=== PATIENT | female | born 1935 | race African-American/Black ===

== ENCOUNTER → 2017-04-10 | Outpatient (CLI) | payer MEDICARE, OTHER ==
[2015-10-22 16:38] VITALS: BP 129/65
[~2017-04-10] MED LIST: ALEN70TA3 PO; AMLO10TA2 PO; ASCO10002 PO; ASPI-482 PO; ATOR20TA PO; CALC500T54 PO; CRAN500C6 PO; DONE10TA61 PO; FERR55TA PO; GREEN PO; LORA10CA PO; METH-39 PO; METO-269 PO; MULT-18 PO; NAPR220C4 PO; VALS80TA3 PO; VIT PO; VITA1CAP PO; [UNRECOGNIZED DRUG - OTHER]; [UNRECOGNIZED DRUG - OTHER] PO; [UNRECOGNIZED DRUG - OTHER] PO; juice plus
--- NOTE | 2017-04-10 14:07 | KCIC ---
Bone mineral density study dated 04/10/2017. Indication: Postmenopausal screening. Findings: Lower lumbar spine: BMD (g/cm2): Total L1-L4.......... 1.339. . T-Score: Total L1-L4.................... 2.7. Z-Score: Total L1-L4 ................... 4.7. Left Hip: BMD (g/cm2): Total .......... 0.959. . T-Score: Total .................... 0.1. Z-Score: Total ................... 1.1. World Health Organization criteria for BMD interpretation classify patients as Normal (T-score at or above -1.0), Osteopenic (T-score between -1.0 and -2.5), or Osteoporotic (T-score at or below -2.5). Impression: Bone mineral density values are within the range of normal. Electronically signed by: Henry Groves MD (04/10/2017 2:03 PM) [facility]
--- NOTE | 2017-04-10 16:10 | KCIC ---
Bilateral digital screening mammograms: Reason for examination: Routine screening. Comparison is made to previous studies dated back to 05/02/2013. Interpretation was made with the benefit of CAD. The skin and nipples show no abnormalities. No abnormal axillary lymph nodes are seen. The breast parenchyma shows scattered fibroglandular density. (Breast density: Category B.) There appears to be some focally increased nodularity suggested laterally in the right breast on cc view which may be associated with parenchymal densities seen centrally on the oblique view. Further evaluation with coned compression views and ultrasound is recommended. There are no other new dominant masses, suspicious calcifications or architectural distortions. Some benign calcifications are present. Impression: Focally increased nodular parenchymal density laterally in the right breast on cc view possibly associated with the density seen in the right oblique view centrally. Recommend further evaluation with coned compression views and ultrasound. BI-RADS Category 0: Incomplete. Additional imaging is recommended. "Our facility is accredited by the [employer] Mammography Program." This patient's information has been entered into a reminder system for the patient to be notified with the results of her examination and a target date for the next mammogram. Electronically signed by: Margo Santana MD (04/10/2017 4:07 PM) [facility]
== END | disposition home or self-care (01) ==
LOC: KCIC MAMMO 12:11
PROVIDERS: ATTEND Internal Medicine
DX: Z12.31 Encounter for screening mammogram for malignant neoplasm of breast (principal)
CPT/HCPCS: 77080; G0202; 77067

== ENCOUNTER → 2017-07-23 | Outpatient (CLI) | payer MEDICARE, OTHER | END | disposition home or self-care (01) | LOC: KCIC MAMMO 09:39 | DX: N64.89 Other specified disorders of breast (principal) | CPT/HCPCS: 77065; G0279 ==

== ENCOUNTER 2018-03-13 16:58 | Emergency (ER) | payer MEDICARE, OTHER ==
[~2018-03-13] VITALS: Ht 167.6 cm; Wt 59.0 kg
[~2018-03-13 16:58] MED LIST changes: -AMLO10TA2 PO; +AMLO10TA6 PO
[2018-03-13 17:30] VITALS: BP 163/78
[2018-03-13] MEDS ORDERED: ACETAMINOPHEN 500 MG TABLET PO ONE (17:45)
--- NOTE | 2018-03-13 18:11 | PHYS DOC ---
Past Medical History Past Medical History: High Cholesterol, Hypertension Past Surgical History: Hip Replacement, Hysterectomy, Knee Replacement, Other Additional Past Surgical Histo: R breast cyst removal Alcohol Use: Occasionally Drug Use: None Adult General Chief Complaint Chief Complaint: HIP PAIN HPI HPI Patient is a 83 year old -[place] female who presents to the emergency Department today with complaints of right hip and right knee pain after she reportedly fell out of bed 3 days ago while getting up to her bedside commode. Patient denies any head injury, loss consciousness, nausea, vomiting, diarrhea, confusion, weakness, dizziness, chest pain, or back pain. She states that the pain in her right hip is exacerbated by movement and weightbearing. Currently, she reports the pain is a 2 out of 10 on the pain scale at rest. The pain shoots up to a 10 out of 10 on the pain scale when she stands or moves. She denies any numbness or tingling of the extremity. Review of Systems Review of Systems Constitutional: Denies fever or chills [] Eyes: Denies change in visual acuity, redness, or eye pain [] HENT: Denies nasal congestion or sore throat [] Respiratory: Denies cough or shortness of breath [] Cardiovascular: denies chest pain GI: Denies abdominal pain, nausea, vomiting, or diarrhea [] : Denies dysuria or hematuria [] Musculoskeletal: Denies back pain, Reports right hip and right knee pain after fall 3 days ago Integument: Denies rash or skin lesions; reports bruising to right knee and lateral right hip [] Neurologic: Denies headache, focal weakness or sensory changes [] All other systems were reviewed and found to be within normal limits, except as documented in this note. Current Medications Current Medications Current Medications Medications (Trade) Dose Ordered Sig/Lacey Start Time Stop Time Status Last Admin Dose Admin Acetaminophen (Tylenol) 1,000 mg 1X ONCE 03/13/18 17:45 03/13/18 17:46 DC 03/13/18 18:14 1,000 MG Allergies Allergies Allergies Coded Allergies Type Severity Reaction Last Updated Verified Sulfa (Sulfonamide Antibiotics) Allergy Unknown 08/22/13 Yes lead Allergy Unknown Rash 10/10/13 Yes zinc Allergy Unknown Rash 10/10/13 Yes Physical Exam Physical Exam Constitutional: Well developed, well nourished, no acute distress, non-toxic appearance. [] HENT: Normocephalic, atraumatic, bilateral external ears normal, nose normal. [] Eyes: PERRLA, conjunctiva normal, no discharge. [] Cardiovascular:Heart rate regular rhythm, no murmur [] Lungs & Thorax: Bilateral breath sounds clear to auscultation [] Skin: Warm, dry, no erythema, no rash. [] Extremities: No cyanosis, no clubbing, ROM intact, no edema; R hip tenderness to palpation, R patella bruising with tenderness to palpation. RLE appears shortened and externally rotated at rest [] Neurologic: Alert and oriented X 3, normal motor function, normal sensory function, no focal deficits noted. [] Psychologic: Affect normal, judgement normal, mood normal. [] Current Patient Data Vital Signs Vital Signs Date Time Temp Pulse Resp B/P (MAP) Pulse Ox O2 Delivery O2 Flow Rate FiO2 03/13/18 17:30 99.6 89 18 163/78 (106) 99 Room Air 99.6 EKG EKG [] Radiology/Procedures Radiology/Procedures PROCEDURE: KNEE RIGHT 3V Indication:Fall onto right side TECHNIQUE: 3 views of the right knee COMPARISON:None FINDINGS: Status post total right knee arthroplasty. No periprostatic lucencies to suggest hardware loosening. Osteopenia. No acute fracture or dislocation. No suprapatellar effusion. Vascular calcifications suggesting peripheral arterial disease. IMPRESSION: 1. Status post total knee arthroplasty without acute fractures or dislocation.[] PROCEDURE: HIP RIGHT 2V WITH PELVIS Indication: Fall onto right hip TECHNIQUE: AP pelvis and 2 views of the right hip COMPARISON: Previous study from 01/03/2014 FINDINGS: Severe degenerative changes are seen in the right hip joint with remodeling of the femoral head and acetabular fossa. Moderate bilateral SI joint arthritis. Status post total left hip arthroplasty. No apparent fractures. Vascular calcifications suggesting peripheral arterial disease. Moderate multilevel degenerative disc disease in the lumbar spine. IMPRESSION: Severe right hip joint osteoarthritis. Course & Med Decision Making Course & Med Decision Making Pertinent Labs and Imaging studies reviewed. (See chart for details) R hip contusion and R knee contusions after fall. X-rays of R hip and R knee were negative for any acute fracture or dislocation. Pt was encouraged to continue taking aleve and tylenol as needed for pain. Patient verbalized an understanding of home care, medications, follow-up, and return to ED instructions and was in agreement with the plan of care. [] Dragon Disclaimer Dragon Disclaimer This electronic medical record was generated, in whole or in part, using a voice recognition dictation system. Departure Departure Impression: Primary Impression: Right hip pain Additional Impressions: Contusion of right hip, initial encounter Right knee pain Contusion of right knee, initial encounter Disposition: HOME, SELF-CARE Condition: STABLE Referrals: JEANETTE LOBO MD (PCP) Patient Instructions: Hip Pain Additional Instructions: Continue taking Aleve and Tylenol as needed for pain.. Recommend application of ice, elevation, and rest of affected extremity. Follow-up with your doctor next week if symptoms persist. Return to the ER if your symptoms worsen. Attending Signature Attending Signature I have reviewed the PA/FLIGHT DIRECTOR's note and plan of care. I was available for consultation as needed during the patient's visit in the emergency department. I agree with the clinical impression, plan, and disposition. Problem Qualifiers Additional Impressions: Right knee pain Chronicity: acute Qualified Codes: M25.561 - Pain in right knee JENSEN TONY APRN Mar 13, 2018 18:11 LAUREN ALMANZAR DO Mar 14, 2018 04:32
--- NOTE | 2018-03-13 18:33 | RAD ---
Indication:Fall onto right side TECHNIQUE: 3 views of the right knee COMPARISON:None FINDINGS: Status post total right knee arthroplasty. No periprostatic lucencies to suggest hardware loosening. Osteopenia. No acute fracture or dislocation. No suprapatellar effusion. Vascular calcifications suggesting peripheral arterial disease. IMPRESSION: 1. Status post total knee arthroplasty without acute fractures or dislocation. Electronically signed by: Lamberto Cazares DO (03/13/2018 6:30 PM) [facility]
--- NOTE | 2018-03-13 18:47 | RAD ---
Indication: Fall onto right hip TECHNIQUE: AP pelvis and 2 views of the right hip COMPARISON: Previous study from 01/03/2014 FINDINGS: Severe degenerative changes are seen in the right hip joint with remodeling of the femoral head and acetabular fossa. Moderate bilateral SI joint arthritis. Status post total left hip arthroplasty. No apparent fractures. Vascular calcifications suggesting peripheral arterial disease. Moderate multilevel degenerative disc disease in the lumbar spine. IMPRESSION: Severe right hip joint osteoarthritis. Electronically signed by: Lamberto Cazares DO (03/13/2018 6:44 PM) [facility]
== END 2018-03-13 19:28 | disposition home or self-care (01) ==
LOC: ER 16:58
DX: S80.01XA Contusion of right knee, initial encounter (principal); S70.01XA Contusion of right hip, initial encounter; E78.00 Pure hypercholesterolemia, unspecified; I10 Essential (primary) hypertension; Z96.649 Presence of unspecified artificial hip joint; Z90.710 Acquired absence of both cervix and uterus; Z96.659 Presence of unspecified artificial knee joint; Z88.2 Allergy status to sulfonamides; Z88.8 Allergy status to other drugs, medicaments and biological substances; W06.XXXA Fall from bed, initial encounter; Y93.89 Activity, other specified; Y92.89 Other specified places as the place of occurrence of the external cause; Y99.8 Other external cause status
CPT/HCPCS: 73502; 73562; 99284

== ENCOUNTER 2018-05-13 08:17 | Emergency (ER) | payer MEDICARE ==
[~2018-05-13] VITALS: Ht 165.1 cm; Wt 59.0 kg
--- NOTE | 2018-05-13 08:31 | PHYS DOC ---
Past Medical History Past Medical History: High Cholesterol, Hypertension Past Surgical History: Hip Replacement, Hysterectomy, Knee Replacement, Other Additional Past Surgical Histo: R breast cyst removal Alcohol Use: Occasionally Drug Use: None Adult General Chief Complaint Chief Complaint: MECHANICAL FALL HPI HPI Patient is a 83 year old female who presents from the [facility] she [facility] with some change in mental status. Nursing staff at the [facility] referred the patient to this ER because they perceived that she was having some lethargy or diminished mental status. The patient reportedly has otherwise been at baseline health. No recent illness. On arrival to the ER, the patient is awake and alert and answering most questions appropriately. She does have a known history of some dementia and she is not oriented to place or time but she is able to converse and answer simple questions appropriately. The patient does not have any complaints on arrival to the ER. Review of Systems Review of Systems Constitutional: Denies fever or chills Eyes: Denies change in visual acuity HENT: Denies nasal congestion Respiratory: Denies cough or shortness of breath Cardiovascular: No additional information not addressed in HPI GI: Denies abdominal pain : Denies dysuria Musculoskeletal: Denies back pain Integument: Denies rash Neurologic: Denies headache Endocrine: Denies polyuria All other systems were reviewed and found to be within normal limits, except as documented in this note. Current Medications Current Medications Current Medications Medications (Trade) Dose Ordered Sig/Lacey Start Time Stop Time Status Last Admin Dose Admin Calcium Gluconate (Calcium Gluconate) 1,000 mg 1X ONCE 05/13/18 09:30 05/13/18 09:31 Cancel Dextrose (Dextrose 50%-Water Syringe) 25 gm 1X ONCE 05/13/18 09:30 05/13/18 09:31 Cancel Insulin Human Regular (HumuLIN R VIAL) 10 unit 1X ONCE 05/13/18 09:30 05/13/18 09:31 Cancel Allergies Allergies Allergies Coded Allergies Type Severity Reaction Last Updated Verified Sulfa (Sulfonamide Antibiotics) Allergy Unknown 08/22/13 Yes lead Allergy Unknown Rash 10/10/13 Yes zinc Allergy Unknown Rash 10/10/13 Yes Physical Exam Physical Exam Constitutional: Well developed, well nourished, no acute distress HENT: Normocephalic, atraumatic, bilateral external ears normal, oropharynx moist, no oral exudates Eyes: PERRLA, EOMI, conjunctiva normal Neck: Normal range of motion Cardiovascular:Heart rate regular rhythm, no murmur Lungs & Thorax: Bilateral breath sounds clear to auscultation Abdomen: Bowel sounds normal, soft, nontender Skin: Warm, dry, no erythema Back: No tenderness, no skin breakdown Extremities: No tenderness. no trauma. no skin injury. Some senile purpura present over forearms Neurologic: Alert and oriented to person only, not to place or date, moves all ext's at baseline. no facial asymmetry, protecting airway, conversing Psychologic: Affect normal Current Patient Data Vital Signs Vital Signs Date Time Temp Pulse Resp B/P (MAP) Pulse Ox O2 Delivery O2 Flow Rate FiO2 05/13/18 09:30 68 16 98 05/13/18 08:28 98.0 188/88 (121) Room Air 98.0 Lab Values Laboratory Tests Test 05/13/18 08:50 White Blood Count 4.8 x10^3/uL (4.0-11.0) Red Blood Count 3.63 x10^6/uL (3.50-5.40) Hemoglobin 11.9 g/dL (12.0-15.5) L Hematocrit 33.8 % (36.0-47.0) L Mean Corpuscular Volume 93 fL (79-100) Mean Corpuscular Hemoglobin 33 pg (25-35) Mean Corpuscular Hemoglobin Concent 35 g/dL (31-37) Red Cell Distribution Width 12.6 % (11.5-14.5) Platelet Count 276 x10^3/uL (140-400) Neutrophils (%) (Auto) 70 % (31-73) Lymphocytes (%) (Auto) 18 % (24-48) L Monocytes (%) (Auto) 10 % (0-9) H Eosinophils (%) (Auto) 1 % (0-3) Basophils (%) (Auto) 1 % (0-3) Neutrophils # (Auto) 3.4 x10^3uL (1.8-7.7) Lymphocytes # (Auto) 0.9 x10^3/uL (1.0-4.8) L Monocytes # (Auto) 0.5 x10^3/uL (0.0-1.1) Eosinophils # (Auto) 0.0 x10^3/uL (0.0-0.7) Basophils # (Auto) 0.1 x10^3/uL (0.0-0.2) Sodium Level 139 mmol/L (136-145) Potassium Level 4.2 mmol/L (3.5-5.1) Chloride Level 103 mmol/L (98-107) Carbon Dioxide Level 26 mmol/L (21-32) Anion Gap 10 (6-14) Blood Urea Nitrogen 23 mg/dL (7-20) H Creatinine 0.9 mg/dL (0.6-1.0) Estimated GFR (Cockcroft-Gault) 72.5 Glucose Level 112 mg/dL (70-99) H Calcium Level 9.2 mg/dL (8.5-10.1) Troponin I Quantitative < 0.017 ng/mL (0.000-0.055) Laboratory Tests 05/13/18 08:50 Laboratory Tests 05/13/18 08:50 EKG EKG No STEMI Interpretation Time: 08:55 Radiology/Procedures Radiology/Procedures [] Impressions: Change in mental status Course & Med Decision Making Course & Med Decision Making Pertinent Labs and Imaging studies reviewed. (See chart for details) 08:30: Patient is seen and examined. 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 Patient was fully examined from head to toe. There was no evidence of skin breakdown. No additional acute findings. All of her long bones were palpated. Joints were ranged with in her comfort level and no pain. No hip pain specifically. Palpation of the shoulders thorax arms cervical spine did not elicit any pain. Patient was sent to the ER for some diminished mental status although she is very awake in the ER and free from complaints. We will check EKG and basic labs and observe the patient in the emergency room. 10:00: Patient remains awake, alert, pleasant, answering most questions appropriately. Labs are reviewed and there are no acute findings. EKG is non- acute. Plan is discharge back to the [facility]. Patient continues to deny complaints. Dragon Disclaimer Dragon Disclaimer This electronic medical record was generated, in whole or in part, using a voice recognition dictation system. Departure Departure Disposition: 01 HOME, SELF-CARE Condition: GOOD Referrals: JEANETTE LOBO MD (PCP) IAM LIVINGSTON DO May 13, 2018 08:31
[2018-05-13 09:13] LABS: BASO # 0.1 x10^3/uL (0.0-0.2); BASO % 1 % (0-3); EOS % 1 % (0-3); HEMATOCRIT 33.8 % (36.0-47.0); HEMOGLOBIN 11.9 g/dL (12.0-15.5); LYMPH # 0.9 x10^3/uL (1.0-4.8); LYMPH % 18 % (24-48); MEAN CORPUSCULAR HEMOGLOBIN 33 pg (25-35); MEAN CORPUSCULAR HGB CONC 35 g/dL (31-37); MEAN CORPUSCULAR VOLUME 93 fL (79-100); MONO # 0.5 x10^3/uL (0.0-1.1); MONO % 10 % (0-9); NEUT # 3.4 x10^3uL (1.8-7.7); NEUT % 70 % (31-73); PLATELET COUNT 276 x10^3/uL (140-400); RED BLOOD COUNT 3.63 x10^6/uL (3.50-5.40); RED CELL DISTRIBUTION WIDTH 12.6 % (11.5-14.5); WHITE BLOOD COUNT 4.8 x10^3/uL (4.0-11.0)
[2018-05-13 09:19] LABS: CALCIUM 9.2 mg/dL (8.5-10.1); CREATININE 0.9 mg/dL (0.6-1.0); GFR 72.5; POTASSIUM 4.2 mmol/L (3.5-5.1)
--- NOTE | 2018-05-13 09:24 | EKG ---
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
[2018-05-13 09:30] VITALS: BP 122/76
[2018-05-13] MEDS ORDERED: INSULIN REGULAR 100 UNIT/ML 3ML VIAL. IV ONE (09:30)
[2018-05-13] MEDS ORDERED: DEXTROSE 50% 25 GM / 50ML DISP.SYRIN. IV ONE (09:30)
[2018-05-13] MEDS ORDERED: CALCIUM GLUCONATE 1,000 MG/10 ML VIAL. IVP ONE (09:30)
== END 2018-05-13 10:43 | disposition home or self-care (01) ==
LOC: ER 08:17
DX: R41.82 Altered mental status, unspecified (principal); D69.2 Other nonthrombocytopenic purpura; E78.00 Pure hypercholesterolemia, unspecified; I10 Essential (primary) hypertension; Z90.710 Acquired absence of both cervix and uterus; Z96.659 Presence of unspecified artificial knee joint; Z96.649 Presence of unspecified artificial hip joint; Z88.2 Allergy status to sulfonamides; Z91.048 Other nonmedicinal substance allergy status
CPT/HCPCS: 36415; 80048; 84484; 85025; 93005; 99285-25

== ENCOUNTER 2018-05-19 04:09 | Emergency (ER) | payer MEDICARE ==
[~2018-05-19] VITALS: Ht 167.6 cm; Wt 63.5 kg
--- NOTE | 2018-05-19 04:34 | PHYS DOC ---
Past Medical History Past Medical History: Arthritis, Dementia, Depression, High Cholesterol, Hypertension, UTI Past Surgical History: Hip Replacement, Hysterectomy, Knee Replacement, Other Additional Past Surgical Histo: R breast cyst removal Alcohol Use: None Drug Use: None Adult General Chief Complaint Chief Complaint: MECHANICAL FALL HPI HPI Patient is a 83 year old female who presents with hip and arm pain post fall. Patient fell approximately an hour prior to arrival. Patient denies any loss of consciousness. Patient has not ambulated since this happened. Patient was brought in by EMS from the assisted care facility where she resides. History is limited due to patient's history of dementia. Patient denies any numbness or tingling in her legs or feet that is new. Patient reports having previous left hip replacement. Left hip as well as right and left knees do not hurt. Patient points to her right thumb when asked what else hurts. Patient denies any numbness or tingling in her right thumb. Nothing seems to make the pain better or worse. Patient reports that the pain is mild.[] Review of Systems Review of Systems Constitutional: Denies fever or chills [] Eyes: Denies change in visual acuity, redness, or eye pain [] HENT: Denies nasal congestion or sore throat [] Respiratory: Denies cough or shortness of breath [] Cardiovascular: No chest pain or palpitations[] GI: Denies abdominal pain, nausea, vomiting, bloody stools or diarrhea [] : Denies dysuria or hematuria [] Musculoskeletal: See history of present illness[] Integument: Denies rash or skin lesions [] Neurologic: Denies headache, focal weakness or sensory changes [] Endocrine: Denies polyuria or polydipsia [] All other systems were reviewed and found to be within normal limits, except as documented in this note. Allergies Allergies Allergies Coded Allergies Type Severity Reaction Last Updated Verified Sulfa (Sulfonamide Antibiotics) Allergy Unknown 08/22/13 Yes lead Allergy Unknown Rash 10/10/13 Yes zinc Allergy Unknown Rash 10/10/13 Yes Physical Exam Physical Exam Constitutional: Well developed, well nourished, no acute distress, non-toxic appearance. [] HENT: Normocephalic, atraumatic, bilateral external ears normal, oropharynx moist, no oral exudates, nose normal. [] Eyes: PERRLA, EOMI, conjunctiva normal, no discharge. [] Neck: Normal range of motion, no tenderness, supple, no stridor. [] Cardiovascular:Heart rate regular rhythm, no murmur [] Lungs & Thorax: Bilateral breath sounds clear to auscultation [] Abdomen: Bowel sounds normal, soft, no tenderness, no masses, no pulsatile masses. [] Skin: Warm, dry, no erythema, no rash. Multiple bruises diffusely with a 7 cm hematoma over the mid shaft region of her right humerus. [] Back: No tenderness, no CVA tenderness. [] Extremities: No tenderness, no cyanosis, no clubbing, ROM intact, no edema. No pain with axial load of her right thumb. Patient is neurovascularly intact. Patient is distal neurovascularly intact bilateral lower extremities. No pain with axial load of her right hip. [] Neurologic: Alert and oriented X 1, normal motor function, normal sensory function, no focal deficits noted. [] Psychologic: Affect normal, judgement limited, mood normal. [] Current Patient Data Vital Signs Vital Signs Date Time Temp Pulse Resp B/P (MAP) Pulse Ox O2 Delivery O2 Flow Rate FiO2 05/19/18 04:09 98.7 90 16 183/84 (117) 99 Room Air 98.7 EKG EKG [] Radiology/Procedures Radiology/Procedures X-ray of the right humerus and right hand with attention to the thumb were both negative for acute fracture or dislocation. X-ray of the right hip and pelvis shows severe degenerative changes of the right hip. There is no acute change from March 13, 2018.[] Course & Med Decision Making Course & Med Decision Making Pertinent Labs and Imaging studies reviewed. (See chart for details) [] Dragon Disclaimer Dragon Disclaimer This electronic medical record was generated, in whole or in part, using a voice recognition dictation system. Departure Departure Impression: Primary Impression: Contusion of right hip, initial encounter Additional Impressions: Contusion of right thumb Contusion of right arm Disposition: 01 HOME, SELF-CARE Condition: GOOD Referrals: LAUREN MILLER MD (PCP) Follow-up in 2 days Patient Instructions: Contusion Additional Instructions: Follow-up with your regular doctor in 2 days. Return to the ER if worsening pain or any other concerns. Problem Qualifiers Additional Impressions: Contusion of right thumb Encounter type: initial encounter Damage to nail status: without damage Qualified Codes: S60.011A - Contusion of right thumb without damage to nail, initial encounter Contusion of right arm Encounter type: initial encounter Qualified Codes: S40.021A - Contusion of right upper arm, initial encounter JENNIFER CAR DO May 19, 2018 04:34
--- NOTE | 2018-05-19 05:46 | RAD ---
Right hip radiograph 05/19/2018 4:37 AM INDICATION: Fall onto right hip COMPARISON: Right hip radiograph March 13, 2018 TECHNIQUE: AP view the pelvis and 2 dedicated views the right hip are provided. FINDINGS: There is no acute fracture or dislocation. Advanced joint space narrowing with remodeling of the right femoral head. Flattening of the right femoral head may represent sequela of avascular necrosis. No definite fracture is visualized, however degree of degenerative changes may limit evaluation for subtle fracture. Left total hip arthroplasty is identified. Sacroiliac joints are well-maintained. Advanced degenerative changes are identified at the lumbosacral junction. Superior and inferior pubic rami are intact. Vascular calcific effusions are present. IMPRESSION: No definite acute fracture or dislocation. If there is persistent clinical concern, further evaluation with cross-sectional imaging may be of benefit. 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 Electronically signed by: Niecy Marcial MD (05/19/2018 5:42 AM) [facility]
--- NOTE | 2018-05-19 05:47 | RAD ---
Right humerus 05/19/2018 4:47 AM INDICATION: Fall with right upper arm pain COMPARISON: None available. TECHNIQUE: 3 views of the right humerus are provided. FINDINGS: There is no acute fracture or dislocation. Bone mineralization is within normal limits. Joint spaces are maintained. Regional soft tissues are within normal limits. There is no soft tissue gas or osseous erosion. IMPRESSION: No acute fracture or dislocation. Electronically signed by: Niecy Marcial MD (05/19/2018 5:43 AM) [facility]
--- NOTE | 2018-05-19 05:49 | RAD ---
Right hand radiograph 05/19/2018 4:47 AM INDICATION: Fall with right hand pain COMPARISON: None available. TECHNIQUE: 3 views the right hand are provided. FINDINGS: There is no acute fracture or dislocation. Bone mineralization is within normal limits. Advanced joint space narrowing involving the first and second carpometacarpal joints with subcortical sclerosis and marginal osteophytosis compatible with advanced osteoarthrosis. Mild interphalangeal joint space narrowing. Intercarpal degenerative changes are present. No perilunate dislocation. Mineralization along the triradiate cartilage may represent CPPD. IMPRESSION: No acute fracture or dislocation. Advanced degenerative changes of the first and second carpometacarpal joints. Electronically signed by: Niecy Marcial MD (05/19/2018 5:44 AM) [facility] [place]
[2018-05-19 06:14] VITALS: BP 173/78
== END 2018-05-19 07:00 | disposition home or self-care (01) ==
LOC: ER 04:09
DX: S60.011A Contusion of right thumb without damage to nail, initial encounter (principal); S40.021A Contusion of right upper arm, initial encounter; S70.01XA Contusion of right hip, initial encounter; M25.562 Pain in left knee; E78.00 Pure hypercholesterolemia, unspecified; I10 Essential (primary) hypertension; F03.90 Unspecified dementia, unspecified severity, without behavioral disturbance, psychotic disturbance, mood disturbance, and anxiety; Z96.642 Presence of left artificial hip joint; Z96.653 Presence of artificial knee joint, bilateral; Z90.710 Acquired absence of both cervix and uterus; Z88.2 Allergy status to sulfonamides; Z88.8 Allergy status to other drugs, medicaments and biological substances; W18.39XA Other fall on same level, initial encounter; Y93.89 Activity, other specified; Y92.89 Other specified places as the place of occurrence of the external cause; Y99.8 Other external cause status
CPT/HCPCS: 73060; 73130; 73502; 99284

== ENCOUNTER 2018-11-25 01:11 | Emergency (ER) | payer MEDICARE ==
[~2018-11-25] VITALS: Ht 160 cm; Wt 63.5 kg
[~2018-11-25 01:11] MED LIST changes: -AMLO10TA6 PO; +AMLO10TA8 PO
[2018-11-25 02:09] LABS: BASO # 0.1 x10^3/uL (0.0-0.2); BASO % 1 % (0-3); EOS # 0.1 x10^3/uL (0.0-0.7); EOS % 1 % (0-3); HEMATOCRIT 34.8 % (36.0-47.0); HEMOGLOBIN 11.6 g/dL (12.0-15.5); LYMPH % 18 % (24-48); MEAN CORPUSCULAR HEMOGLOBIN 30 pg (25-35); MEAN CORPUSCULAR HGB CONC 33 g/dL (31-37); MEAN CORPUSCULAR VOLUME 90 fL (79-100); MONO # 0.4 x10^3/uL (0.0-1.1); MONO % 7 % (0-9); NEUT # 3.7 x10^3uL (1.8-7.7); NEUT % 72 % (31-73); PLATELET COUNT 303 x10^3/uL (140-400); RED BLOOD COUNT 3.87 x10^6/uL (3.50-5.40); RED CELL DISTRIBUTION WIDTH 14.2 % (11.5-14.5); WHITE BLOOD COUNT 5.2 x10^3/uL (4.0-11.0)
[2018-11-25 02:17] LABS: CALCIUM 9.6 mg/dL (8.5-10.1); CREATININE 0.8 mg/dL (0.6-1.0); GFR 83.1; POTASSIUM 3.9 mmol/L (3.5-5.1)
[2018-11-25 02:24] VITALS: BP 168/88
[2018-11-25 02:32] LABS: ALBUMIN 3.4 g/dL (3.4-5.0); ALBUMIN/GLOBULIN RATIO 0.9 (1.0-1.7); TOTAL BILIRUBIN 0.5 mg/dL (0.2-1.0); TOTAL PROTEIN 7.2 g/dL (6.4-8.2)
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
--- NOTE | 2018-11-25 02:44 | RAD ---
PQRS Compliance statement: One or more of the following individualized dose reduction techniques were utilized for this examination: 1. Automated exposure control. 2. Adjustment of the mA and/or kV according to patient size. 3. Use of iterative reconstruction technique. Indication:Fall TECHNIQUE: CT head without IV contrast COMPARISON: None FINDINGS: No pathologic extra-axial or intra-axial fluid collection. Moderate atrophy with ex vacuo dilation of the ventricles. Basal cisterns are within normal limits. No acute intracranial bleed. Orbits are within normal limits. Left frontal scalp hematoma measuring 8 mm in thickness. No acute calvarial fracture. Visualized paranasal sinuses and mastoid air cells are clear. IMPRESSION: 1. No acute intracranial bleed. No acute cranial fractures. 2. Left anterior frontal scalp hematoma. 3. Moderate atrophy. Indication:Fall TECHNIQUE: CT of the cervical spine without IV contrast with multiplanar reformats. COMPARISON:None FINDINGS: Cervical spine is in normal anatomic alignment. Atlantoaxial joint or is preserved. No compression deformity. Facet joints are in normal anatomic alignment. Intervertebral disc space narrowing seen at C4-T1 with osteophyte formation. No acute fractures. Noncontrast appearance of the neck soft tissue is within normal limits. Clear lung apices. IMPRESSION: 1. No acute fractures. 2. Advanced lower cervical spine degenerative disc disease. Electronically signed by: Lamberto Cazares DO (11/25/2018 2:41 AM) [facility]
[2018-11-25 02:49] LABS: BILIRUBIN,URINE NEGATIVE (NEG); CLARITY,URINE CLOUDY; COLOR,URINE YELLOW; NITRITE,URINE POSITIVE (NEG); PROTEIN,URINE NEGATIVE (NEG-TRACE); UROBILINOGEN,URINE 0.2 mg/dL (0.2 mg/dL)
[2018-11-25 02:56] LABS: BACTERIA,URINE MANY /HPF (0-FEW); SQUAMOUS EPITHELIAL CELL,UR FEW /LPF; WBC,URINE TNTC /HPF (0-4)
[2018-11-25] MEDS ORDERED: LEVO500T59 PO (03:06)
--- NOTE | 2018-11-25 08:18 | RAD ---
EXAM: CHEST 1 VIEW History: Fall COMPARISON: None available. TECHNIQUE: Single portable radiograph of the chest FINDINGS: The cardiac silhouette is unremarkable. The lungs are clear bilaterally. The costophrenic sulci are clear and well demarcated. IMPRESSION: No radiographic evidence of an acute cardiopulmonary process. Electronically signed by: Tiago Glover MD (11/25/2018 8:15 AM) [place] [id number]
--- NOTE | 2018-11-25 08:20 | RAD ---
Examination: Frontal view of the pelvis HISTORY: History of fall COMPARISON: 03/13/2018. 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 This is a similar to prior exam. Total left hip arthroplasty changes in normal alignment. Electronically signed by: Tiago Glover MD (11/25/2018 8:17 AM) [place] [id number]
== END 2018-11-25 04:04 | disposition home or self-care (01) ==
LOC: ER 01:11
DX: S00.83XA Contusion of other part of head, initial encounter (principal); N39.0 Urinary tract infection, site not specified; F03.90 Unspecified dementia, unspecified severity, without behavioral disturbance, psychotic disturbance, mood disturbance, and anxiety; F32.9 Major depressive disorder, single episode, unspecified; E78.00 Pure hypercholesterolemia, unspecified; I10 Essential (primary) hypertension; Z90.710 Acquired absence of both cervix and uterus; Z88.2 Allergy status to sulfonamides; Z88.8 Allergy status to other drugs, medicaments and biological substances; W18.39XA Other fall on same level, initial encounter; Y93.89 Activity, other specified; Y92.128 Other place in nursing home as the place of occurrence of the external cause; Y99.8 Other external cause status
CPT/HCPCS: 36415; 70450; 71045; 72125; 72170; 80053; 81001; 83605; 83735; 85025; 87040; 99285; P9612